=== PATIENT | female | born 1975 | race Caucasian/White ===

== ENCOUNTER 2018-01-27 20:15 | Emergency (ER) | payer OTHER, SELFPAY ==
[2018-01-27 20:17] VITALS: BP 118/91; PULSE 126; RESP 24; TEMP 36.6; O2SAT 94; BMI 28.5
--- NOTE | 2018-01-27 20:19 | ED.DCSUM_ITS ---
- ER Visit Summary Date of Service: 01/27/18 Chief Complaint: Allergic reaction status post bee sting History of Present Illness: The patient is a 42 F presents to the emergency department after a bee sting. Patient states it happened approximately 10-15 minutes ago. She was stung on the shoulder. Shortly thereafter, she began have diffuse urticaria. She feels like her tongue swelling. She describes some trouble breathing. The patient is otherwise healthy. She has never had allergic reaction before. She is on no daily medications. She denies any other exposures. Physical Examination: Vital signs reviewed General: Well-nourished, well-developed Head: Normocephalic, atraumatic Eyes: Pupils equal and reactive, extraocular muscles intact Oropharynx: Widely patent, no angioedema Neck, supple, no lymphadenopathy Heart: Regular rate and rhythm Respiratory: No distress, slight wheeze throughout Abdomen: Soft, nontender, nondistended, no peritoneal signs Back: Nontender Extremities: Nontender, no edema, no cords Skin: Normal color no rash Neuro: Alert and oriented, no focal or lateralizing deficits Test Results: [] Emergency Department Course and Treatment: The patient presents with evidence of anaphylaxis. She is complaining of airway swelling. She has diffuse urticarial abdominal pain. She was not hypotensive. The patient was given IM epinephrine. IV was established she was given fluids, Pepcid, Solu-Medrol, and Zofran for nausea. Within 30 minutes, she had marked improvement of her symptoms. Within an hour, she was resting comfortably. She had no hypotension. She no tachycardia. She no further wheezing. The patient will be observed for 4 hours. As long she has no rebound symptoms, I do feel that she can safely be discharged. She will be kept on prednisone and Pepcid. She will be given a prescription for an EpiPen. Patient is comfortable with this plan of care. Treatment Plan: [] Disposition: Discharge Impression: 1. Anaphylaxis to bee sting This note was generated with [employer] dictation software. It may contain incorrect words, spelling, and punctuation that were not noted in review of the chart prior to signing ED Disposition - Plan for ED Patient: Chief Complaint: Allergic Reaction Instructions: ED Allergic Reaction General Other Prescriptions: Ondansetron [Zofran Odt] 4 mg PO Q8H PRN PRN #10 tab PRN Reason: Nausea Epinephrine [Epi Pen] 0.3 mg IM X1 #2 syringe Prednisone 10 mg PO UD #33 tab Famotidine [Pepcid] 20 mg PO BID #28 tab Referrals: NOT,DEFINED [NON-STAFF] -
[2018-01-27] MEDS: 0.9% Normal Saline 1,000 ML 1000 ML IV (20:23)
[2018-01-27] MEDS: MethylPREDNISolone 125 MG/2 ML Vial IV (20:23)
[2018-01-27] MEDS: DiphenhydrAMINE 50 MG/ML Syringe IV (20:24)
[2018-01-27] MEDS: Ondansetron 4 MG/2 ML Vial IV (20:24)
[2018-01-27 21:29] VITALS: BP 101/48; PULSE 81; RESP 16; O2SAT 99
[2018-01-27 23:12] VITALS: BP 99/48; PULSE 69; RESP 16; O2SAT 98
[2018-01-28 00:10] VITALS: BP 103/56; PULSE 79; RESP 16; O2SAT 97
== END 2018-01-28 00:12 | disposition home or self-care (01) ==
PROVIDERS: Emergency Provider Emergency Medicine
DX: T63.441A Toxic effect of venom of bees, accidental (unintentional), initial encounter (principal); Y92.9 Unspecified place or not applicable; Z72.0 Tobacco use
CPT/HCPCS: 99283; J7030; A4216; J2405; J3490

== ENCOUNTER → 2018-08-10 14:45 | Outpatient (CLI) | payer OTHER, SELFPAY ==
[2018-08-10 17:29] LABS: Chlamydia Trachomatis by PCR Negative (Negative); Neisserai gonorrhoeae by PCR Negative (Negative); Probe Check PASS; Sample Adequacy Control PASS; Specimen Processing Control PASS
== END ==
PROVIDERS: Visit Provider Obstetrics & Gynecology
DX: Z11.3 Encounter for screening for infections with a predominantly sexual mode of transmission (principal)
CPT/HCPCS: 87491; 87591

== ENCOUNTER 2019-06-10 16:10 | Emergency (ER) | payer BC, SELFPAY ==
[2019-06-10 16:11] VITALS: BP 141/95; PULSE 76; RESP 17; TEMP 37.2; O2SAT 97; BMI 26.1
--- NOTE | 2019-06-10 16:53 | ED.VISSUMM ---
- ER Visit Summary Date of Service: 06/10/19 Chief Complaint: Neck and back pain History of Present Illness: The patient is a 43 F who presents with neck and back pain that has been getting worse over the last 5 days. Patient states that today she lifted her 20-year-old son from his wheelchair to the car. Patient states she felt a pop in the lower neck and upper thoracic area. Patient states her pain has gotten progressively worse since that time. Patient describes her pain is sharp, throbbing, and burning. Patient states her pain is over the cervical, thoracic, and lumbar area. Patient states she has a history of prior low back pain. Patient denies any paresthesias or weakness. Patient denies any radiation of the pain. Patient denies any bowel or bladder changes. Patient denies any saddle anesthesia. Physical Examination: Vital signs are stable. Patient is afebrile. Patient is in no acute distress. Musculoskeletal exam reveals tenderness over the lower cervical and upper thoracic spine in the midline. There is no bony crepitance or step-off. There is spasm of the cervical, thoracic, and lumbar paraspinal muscles. Range of motion was limited in all motions of the cervical and thoracic spine secondary to pain. Strength is 5/5 bilaterally upper and lower extremities. There are no sensory deficits noted. Patient ambulated without difficulty. Cranial nerves II through XII are intact. 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 These were negative. These were interpreted by the radiologist and myself. Emergency Department Course and Treatment: Patient drove herself to the emergency department. Patient was given prescriptions for Naprosyn and Valium. Patient was instructed to use ice to the area. Patient was instructed to follow-up with her primary care physician in 5 to 7 days. Patient understood and was agreeable with the plan. All questions were answered. Disposition: Discharge home Impression: 1. Acute thoracic strain 2. Acute cervical strain This note was generated with [employer] dictation software. It may contain incorrect words, spelling, and punctuation that were not noted in review of the chart prior to signing ED Disposition - Plan for ED Patient: Disposition: Home or Assisted Living Diagnosis: Acute thoracic myofascial strain, Acute cervical myofascial strain Instructions: BACK AND NECK PAIN, General, Back Sprain/Strain Prescriptions: Naproxen [Naprosyn] 500 mg PO BID PRN #20 tab Prescription Printed Diazepam [Valium] 5 mg PO QHS PRN PRN #10 tab PRN Reason: Muscle Spasm Prescription Printed Referrals: Care Physician,No Primary [Primary Care Provider] - 5-7 Days
--- NOTE | 2019-06-10 17:01 | RAD_ITS ---
STUDY: X-RAY - CERVICAL SPINE REASON FOR EXAM: Female, 43 years old. NECK PAIN SINCE MONDAY, WORSENING TODAY AFTER LIFTING ADULT DISABLED SON INTO VEHICLE, LEFT SIDE WORSE THAN RIGHT TECHNIQUE: 3 view(s) of the cervical spine were obtained. COMPARISON: None FINDINGS: Normal anterior atlantoaxial articulation. Normal odontoid process. Normal cervical lordosis. Normal vertebral bodies and endplates. Normal disc space heights. Normal visualized intervertebral neuroforamina. The soft tissue structures are unremarkable. RAD/Cerv Spine 2 or 3 Views IMPRESSION: Normal x-ray examination of the visualized cervical spine. Electronically Signed: Jay Dotson MD at 17:28 EST , Service support ,
[2019-06-10 18:11] VITALS: BP 138/87; PULSE 86; RESP 18; O2SAT 97
== END 2019-06-10 18:12 | disposition home or self-care (01) ==
PROVIDERS: Emergency Provider Emergency Medicine
DX: S16.1XXA Strain of muscle, fascia and tendon at neck level, initial encounter (principal); S29.012A Strain of muscle and tendon of back wall of thorax, initial encounter; X50.0XXA Overexertion from strenuous movement or load, initial encounter; Y93.9 Activity, unspecified; Y92.89 Other specified places as the place of occurrence of the external cause; Y99.9 Unspecified external cause status; F17.210 Nicotine dependence, cigarettes, uncomplicated
CPT/HCPCS: 72040; 99282

== ENCOUNTER → 2019-07-05 08:12 | Outpatient (CLI) | payer BC, SELFPAY ==
[2019-06-10 16:11] VITALS: BMI 26.1
[2019-07-05 10:50] LABS: Anion Gap 4 (5-15); BUN 11 mg/dL (7-18); BUN/Creat Ratio 20.3 RATIO (10-20); Calcium,Total 8.6 mg/dL (8.5-10.1); Chloride 112 mmol/L (98-107); Cholesterol 193 mg/dL (200); Creatinine, Serum 0.54 mg/dL (0.55-1.02); EST Glomerular Filtration Rate 131 mL/min (>60); Est Glom Filt Rate - Afr Amer 158 mL/min (>60); Glucose 93 mg/dL (74-106); High Density Lipoprotein 33 mg/dL; Potassium 3.8 mmol/L (3.5-5.1); Sodium Level 141 mmol/L (136-145); Triglycerides 91 mg/dL; Very Low Density Lipoprotein 18 mg/dL (5-40)
== END ==
PROVIDERS: PCP Family Medicine; Referring Provider Family Medicine; Visit Provider Family Medicine
DX: Z13.1 Encounter for screening for diabetes mellitus (principal); Z13.220 Encounter for screening for lipoid disorders
CPT/HCPCS: 36415; 80048; 80061

== ENCOUNTER → 2020-01-09 17:23 | Outpatient (CLI) | payer BC, SELFPAY ==
[2020-01-09 16:00] VITALS: BMI 26.1
[2020-01-15 03:18] LABS: HPV APTIMA, High Risk Negative (Negative)
== END ==
PROVIDERS: PCP Family Medicine; Visit Provider Obstetrics & Gynecology
DX: Z12.4 Encounter for screening for malignant neoplasm of cervix (principal)
CPT/HCPCS: 87624; 88175; G0145

== ENCOUNTER → 2020-01-29 15:37 | Outpatient (CLI) | payer BC, SELFPAY ==
[2020-01-09 16:00] VITALS: BMI 26.1
--- NOTE | 2020-01-29 15:38 | BI_ITS ---
MAMMOGRAPHY - BILATERAL SCREENING REASON FOR EXAM: Female, 44 years old. Routine annual screening examination. PERTINENT HISTORY: Aunt with breast cancer. TECHNIQUE: Digital bilateral breast anjelica (3D mammographic acquisition) in the CC and MLO projections. 2-D mediolateral oblique (MLO) and craniocaudad (CC) views of both breasts were obtained. CAD: Full Field Digital Mammography with Computer Added Detection was performed. COMPARISON: None. Baseline examination. FINDINGS: Breast Composition: The breasts are heterogeneously dense, which may obscure small masses. There are no dominant masses or suspicious calcifications. No other significant abnormalities are identified. BI/SCREEN MAMM (CAD) W/ANJELICA BILAT IMPRESSION: Negative screening mammogram. Yearly followup mammogram recommended. (A) ASSESSMENT CATEGORY: BIRADS Category 1: Negative. A letter regarding these results will be sent to the patient by the facility within 30 days. Approximately 10% of breast cancers are not detected by mammography. A normal mammogram should not delay biopsy of a clinically suspicious abnormality. [id number] Electronically Signed: Arash Barnard, at 8:04 EDT , Service support ,
== END ==
PROVIDERS: PCP Family Medicine; Referring Provider Obstetrics & Gynecology; Visit Provider Obstetrics & Gynecology
DX: Z12.31 Encounter for screening mammogram for malignant neoplasm of breast (principal); Z80.3 Family history of malignant neoplasm of breast
CPT/HCPCS: 77063; 77067

== ENCOUNTER 2020-04-09 14:42 | Emergency (ER) | payer BC, SELFPAY ==
[2020-01-09 16:00] VITALS: BMI 26.1
[2020-04-09 14:44] VITALS: BP 137/100; PULSE 91; RESP 16; TEMP 36.3; O2SAT 100; BMI 30.8
--- NOTE | 2020-04-09 15:12 | ED.VIS.GEN ---
History of Present Illness Chief Complaint: Lower Extremity Injury Narrative: Patient presents with left knee pain for a week, no known injury although she started having the pain in the supra patellar region while walking. Past Medical History - Allergies and Home Meds Allergies/Adverse Reactions: Allergies bee pollen Allergy (Verified 04/09/20 14:44) Anaphylaxis Primary Care Physician: Dell Lomeli MD [Primary Care Provider] - Past Medical History: - - Noncontributory Smoking Status: Former smoker Review of Systems Musculoskeletal: Reports: Arthralgias, Extremity Pain Skin: Denies: Rash Neurological: Denies: Weakness, Parasthesia Hematologic: Denies: Easy bruising, Easy bleeding Physical Exam Vital Signs/Narrative: Vital Signs Temp Pulse Resp BP Pulse Ox 04/09/20 14:44 97.3 F L 91 16 137/100 H 100 General: Well nourished, Well developed Cardiovascular: Regular rate, Regular rhythm Respiratory: No distress Back: Nontender, Normal Inspection Extremities: - - Tenderness is not in the knee its in the area above the knee and the quadricep muscle and IT band region. Her knee is stable without any laxity. Neurological: Normal Strength, Normal Sensation Diagnostic/Tx/Re-eval - Medical Decision Making Patient has quadricep muscle pain as well as IT tenderness, she may have referred pain to the knee or she may have consequent knee problems secondary to overuse. Regardless I taught her stretching exercises and she already takes muscle relaxants at home otherwise I will discharge her in stable condition. ED Disposition - Plan for ED Patient: Diagnosis: IT band syndrome, Quadricep tightness Instructions: Muscle Spasm Referrals: Dell Lomeli MD [Primary Care Provider] - 3-5 Days
[2020-04-09 15:45] VITALS: RESP 16
== END 2020-04-09 15:47 | disposition home or self-care (01) ==
LOC: ED 15:24
PROVIDERS: Emergency Provider Emergency Medicine; PCP Family Medicine
DX: M76.32 Iliotibial band syndrome, left leg (principal); Z87.891 Personal history of nicotine dependence
CPT/HCPCS: 99282

== ENCOUNTER → 2020-07-25 08:21 | Outpatient (CLI) | payer BC, SELFPAY ==
[2020-07-25 10:17] LABS: AST(SGOT) 23 U/L (15-37); Alanine Aminotransfer ALT/SGPT 36 U/L (13-56); Albumin, Serum 3.5 g/dL (3.2-5.0); Alkaline Phosphatase 47 U/L (45-117); Anion Gap 4 (5-15); BUN 16 mg/dL (7-18); BUN/Creat Ratio 26.1 RATIO (10-20); Calcium,Total 8.5 mg/dL (8.5-10.1); Chloride 108 mmol/L (98-107); Cholesterol 197 mg/dL (200); Creatinine, Serum 0.61 mg/dL (0.55-1.02); EST Glomerular Filtration Rate 113 mL/min (>60); Est Glom Filt Rate - Afr Amer 136 mL/min (>60); Globulin 3.6 g/dL (2.2-4.2); Glucose 95 mg/dL (74-106); High Density Lipoprotein 37 mg/dL; Protein, Total 7.1 g/dL (6.4-8.2); Sodium Level 140 mmol/L (136-145); Triglycerides 88 mg/dL; Very Low Density Lipoprotein 18 mg/dL (5-40)
== END ==
LOC: LAB 08:23
PROVIDERS: PCP Family Medicine; Visit Provider Family Medicine
DX: E78.5 Hyperlipidemia, unspecified (principal)
CPT/HCPCS: 36415; 80053; 80061

== ENCOUNTER 2020-09-25 22:02 | Emergency (ER) | payer BC, SELFPAY ==
[2020-09-25 22:02] VITALS: BP 154/103; PULSE 84; RESP 16; TEMP 36.4; O2SAT 97; BMI 30.4
[2020-09-25] MEDS: DiphenhydrAMINE 50 MG/ML Syringe 25 MG IV (22:49)
[2020-09-25] MEDS: 0.9% Normal Saline 1,000 ML 999 ML IV (22:49)
[2020-09-25] MEDS: Metoclopramide 10 MG/2 ML Vial IV (22:50)
[2020-09-25 23:00] LABS: Absolute Lymphocyte Count 3.09 X10^3/uL (0.83-4.51); Absolute Neutrophil Count 5.3 X10^3/uL (2.0-7.7); Basophil# 0.03 X10^3/uL; Basophil% 0.3 % (0-1); Eosinophils% 1.1 % (0-5); Hematocrit 44.5 % (37-47); Hemoglobin 14.5 g/dL (12.0-15.0); Lymphocyte # 3.09 X10^3/ul (0.83-4.51); Lymphocyte % 33.2 % (19-41); Mean Corp Hgb Conc 32.6 g/dL (32-36); Mean Corpuscular Volume 92.1 fL (81-99); Mean Platelet Vol. 9.5 fl (6.2-12.0); Monocyte# 0.75 X10^3/uL; Monocyte% 8.1 % (0-10); NRBC Flagged by Analyzer 0 % (0-5); Neutrophil # 5.32 X10^3/uL (2.7-7.7); Neutrophil % 57.1 % (47-70); Platelet Count 430 K/mm3 (150-450); RBC Distribution Width CV 12.2 % (11.6-14.6); RBC Distribution Width SD 41.7 fl (35.1-43.9); Red Blood Count 4.83 M/mm3 (4.2-5.4); White Blood Count 9.3 K/mm3 (4.4-11.0)
--- NOTE | 2020-09-25 23:00 | ED.DCSUM_ITS ---
- ER Visit Summary Date of Service: 09/25/20 Chief Complaint: Headache, nausea and vomiting History of Present Illness: The patient is a 45 F who has a headache and nausea and vomiting. Is been going on since yesterday. She states that smells and movement make her headache worse. Is diffuse and throbbing. She states that I cannot keep anything down. She denies any history of headaches or migraines. She denies any abdominal pain with this. Currently she feels nauseated. She has a history of back pain but no other health issues. Physical Examination: Vital signs reviewed. HEENT exam unremarkable. Heart is regular rate and rhythm without murmurs. Lungs are clear to auscultation. Abdomen is soft and nontender. Extremities reveal no edema. Skin exam normal. Neurologic exam normal. Test Results: Laboratory studies are unremarkable save for an ALT of 107 and AST of 44. Emergency Department Course and Treatment: The patient was given IV Reglan, Benadryl and normal saline. Upon reevaluation at 2327 the patient has 100% improvement of symptoms. She declines having a CAT scan of her head due to the resolution of her symptoms. Patient will be discharged home. She will follow- up with her PCP. Treatment Plan: [] Disposition: Discharge Impression: Headache, nausea and vomiting This note was generated with [employer] dictation software. It may contain incorrect words, spelling, and punctuation that were not noted in review of the chart prior to signing ED Disposition - Plan for ED Patient: Disposition: Home or Assisted Living Instructions: ED, Migraine (Classical) Referrals: Dell Lomeli MD [Primary Care Provider] -
[2020-09-25 23:15] LABS: ALB/GLOB Ratio 0.9 RATIO (0.9-2.4); AST(SGOT) 44 U/L (15-37); Alanine Aminotransfer ALT/SGPT 107 U/L (13-56); Albumin, Serum 3.8 g/dL (3.2-5.0); Alkaline Phosphatase 86 U/L (45-117); Anion Gap 6 (5-15); BUN 10 mg/dL (7-18); BUN/Creat Ratio 17.7 RATIO (10-20); Calcium,Total 8.8 mg/dL (8.5-10.1); Chloride 107 mmol/L (98-107); Creatinine, Serum 0.56 mg/dL (0.55-1.02); EST Glomerular Filtration Rate 124 mL/min (>60); Est Glom Filt Rate - Afr Amer 150 mL/min (>60); Estimated Creatinine Clearance 96.74 ml/min; Globulin 4.1 g/dL (2.2-4.2); Glucose 106 mg/dL (74-106); Lipase 125 U/L (73-393); Potassium 3.5 mmol/L (3.5-5.1); Protein, Total 7.9 g/dL (6.4-8.2); Sodium Level 139 mmol/L (136-145)
== END 2020-09-26 00:06 | disposition home or self-care (01) ==
PROVIDERS: Emergency Provider Emergency Medicine; PCP Family Medicine
DX: R51.9 Headache, unspecified (principal); R11.2 Nausea with vomiting, unspecified
CPT/HCPCS: 80053; 83690; 85025; 96361; 96374; 96375; 99283; J7030; A4216